=== PATIENT | female | born 1960 | race Two or more races ===

== ENCOUNTER 2017-09-26 13:00 | Emergency (ER) | payer OTHER ==
[2017-09-26 13:27] VITALS: BMI 31.7
--- NOTE | 2017-09-26 14:05 | PDOC ---
Attending Attestation - Resident Resident Name: GabbyAdrianna - ED Attending Attestation I have performed the following: I have examined & evaluated the patient, The case was reviewed & discussed with the resident, I agree w/resident's findings & plan, Exceptions are as noted <Dary Barnes - Last Filed: 09/26/17 14:05> - HPI HPI: 09/26/17 15:39 The patient is a 57 year old female with a significant PMH of HTN, fibromyalgia , spinal stenosis, previous TIA (2-3 years ago) and depression who presents to the emergency department after being sent by Dr. Lamar with a persistent cough beginning approximately last month with occasional hemoptysis. The patient reports noting specks of blood this morning and last week, and reports 2 previous episodes of hemoptysis last year. Allergies: Sulfonamide antibiotics. Past surgical history: Cholecystectomy, Tubal ligation, Right ear surgery. Social history: Current everyday smoker. No reported alcohol or drug use. PCP: Dr. Lamar <Davis Baca - Last Filed: 09/26/17 15:39>
--- NOTE | 2017-09-26 16:01 | PDOC ---
History of Present Illness - General Chief Complaint: Hemoptysis Stated Complaint: PCP SENT FOR CHEST CT FOR HEMOPTYSIS Time Seen by Provider: 09/26/17 14:02 History Source: Patient Exam Limitations: No Limitations - History of Present Illness Initial Comments: This is a 57 YOF with current right otitis media (on abx x5 days), HTN (takes amlodipine), spinal stenosis, fibromyalgia, and TIA 2-3 years ago who presents with cough for the past month with hemoptysis this morning. She describes the hemoptysis as specks of blood, and the last time she had this was a week ago. She had prior episodes of this last year. She [email or web address] had a previous chest CT showing pulmonary nodules at [facility] and was supposed to have these followed up but has not had a scan since 10/2015. On speaking with Pt's PCP Dr. Lamar, she just received the patient's chart from [facility] which has 92 pages and many imaging studies for multiple complaints (MRI, echocardiogram, CT) including a chest CT showing multiple nodules in 10/2015. Dr. Lamar and Dr. Pichardo (Pulmonology) both agree the patient needs a chest CT but there has been a time delay in her getting an outpatient study. Past History - Past Medical History Allergies/Adverse Reactions: Allergies Allergy/AdvReac Type Severity Reaction Status Date / Time Sulfa (Sulfonamide Allergy Intermediate Hives Verified 09/26/17 13:22 Antibiotics) Home Medications: Ambulatory Orders Amoxicillin/Potassium Clav [Augmentin 875-125 Tablet] 1 each PO BID #20 tablet 09/26/17 COPD: No HTN: Yes Other medical history: FIBROMYALGIA,SPINAL STENOSIS - Surgical History Cholecystectomy: Yes - Suicide/Smoking/Psychosocial Hx Smoking History: Current every day smoker Have you smoked in the past 12 months: Yes Number of Cigarettes Smoked Daily: 10 Information on smoking cessation initiated: No Review of Systems - Review of Systems Able to Perform ROS?: Yes Is the patient limited Swazi proficient: No Constitutional: Yes: Chills. No: Fever, Night Sweats, Unintentional Wgt. Loss, Unexplained wgt Loss HEENTM: No: Nose Congestion, Throat Pain Respiratory: Yes: Cough, Shortness of Breath (chronic), Hemoptysis. No: Orthopnea Cardiac (ROS): Yes: Palpitations, Chest Tightness (for two months) ABD/GI: No: Constipated, Diarrhea, Nausea, Vomiting : No: Burning, Dysuria Musculoskeletal: No: Back Pain, Neck Pain Integumentary: No: Bruising, Rash Neurological: Yes: Headache, Dizziness. No: Numbness, Tingling, Weakness Endocrine: No: Unexplained Weight Gain, Unexplained Weight Loss *Physical Exam - Vital Signs Last Vital Signs Temp Pulse Resp BP Pulse Ox 98.2 F 66 19 142/72 96 09/26/17 13:22 09/26/17 13:22 09/26/17 13:22 09/26/17 13:22 09/26/17 13:22 ED Treatment Course - LABORATORY CBC & Chemistry Diagram: 09/26/17 16:08 09/26/17 16:08 Medical Decision Making - Medical Decision Making 57 YOF with previously diagnosed lung nodules p/w hemoptysis. No risk factors for TB and states had a negative TST at [facility] earlier in 2017. No cough on exam, does not appear pale, mild right mastoid tenderness to percussion, perforated TM on the right. Spoke with Dr. Lamar who states patient needs CT chest to f/o lung masses found 10/2015. DDX IBNLT malignancy (i.e. lung vs. laryngeal, etc), bronchitis/PNA, CHF exacerbation, UGIB, etc. Ordered is CBCD, CMP, coags, BNP, CT chest, CT temporal bones. No significant abnormalities on laboratory results. CT Chest with numerous few-mm nodules, centrilobular emphysema, anterior superior mediastinum increased tissue. CT temporal bones suggestive of mastoid hypoaeration which could represent inflammation/infection, posterior nasopharynx increased tissue. Patient is given one Augmentin here in the ED and E-Rx sent to her pharmacy. She is appropriate for DC home with close OP follow up. Return precautions are discussed. *DC/Admit/Observation/Transfer Diagnosis at time of Disposition: Hemoptysis, Pulmonary nodule Mastoiditis Qualifiers: Laterality: right Qualified Code(s): H70.91 - Unspecified mastoiditis, right ear Otitis Qualifiers: Laterality: right Qualified Code(s): H66.91 - Otitis media, unspecified, right ear - Discharge Dispostion Disposition: HOME Condition at time of disposition: Stable Admit: No - Prescriptions Prescriptions: Amoxicillin/Potassium Clav [Augmentin 875-125 Tablet] 1 each PO BID #20 tablet - Referrals Referrals: Ary Lamar MD [Primary Care Provider] - - Patient Instructions Printed Discharge Instructions: DI for Mastoiditis-Adult Additional Instructions: You were seen in the ER for coughing specks of blood, and right ear pain. We did lab work and did not find any serious abnormal findings. We also did a chest CT and found many tiny nodules. You should follow up with your fluoroscope operator about this. We also did a head CT to look at the mastoid bone behind your right ear, and we found fluid within that bone which is likely infection. We are prescribing you a new antibiotic to take, called Augmentin. Please take the full course of this instead of your current antibiotics. Please also follow up with an ENT doctor regarding your mastoiditis and ear infection ( especially because your eardrum is ruptured). Return to the ER for any new or worsening symptoms like fever you can't control with OTC medications, severe pain you cannot control with medications at home, passing out, or other symptoms. - Post Discharge Activity
[2017-09-26 16:59] LABS: BASOPHIL 0.9 % (0-2.0); EOSINOPHIL 1.6 % (0-4.5); MEAN CELL VOLUME 88.2 fl (80-96); MEAN PLT VOLUME 9.2 fl (7.5-11.1); NEUTROPHILS 43.9 % (42.8-82.8); PLATELET COUNT 195 K/MM3 (134-434); RDW 13.7 % (11.6-15.6); WHITE BLOOD COUNT 6.4 K/mm3 (4.0-10.0)
[2017-09-26 17:25] LABS: INR 1.05 (0.82-1.09); PROTHROMBIN TIME (PATIENT) 11.9 SEC (9.98-11.88)
[2017-09-26 17:28] LABS: ACTIVATED PTT 30.1 SECONDS (26.9-34.4)
[2017-09-26 17:39] LABS: ALBUMIN 3.5 g/dl (3.4-5.0); ANION GAP 5 (8-16); CALCIUM 8.6 mg/dL (8.5-10.1); CO2 27 mmol/L (21-32); CREATININE 0.5 mg/dL (0.55-1.02); GLUCOSE,RANDOM 86 mg/dL (74-106); MAGNESIUM 2.3 mg/dL (1.8-2.4); PHOSPHOROUS 3.4 mg/dL (2.5-4.9); SGOT/AST 13 U/L (15-37)
[2017-09-26 17:51] LABS: ALK PHOS 76 U/L (45-117); BILIRUBIN,TOTAL 0.3 mg/dL (0.2-1.0); SGPT/ALT 25 U/L (12-78); TOT PROT 6.8 g/dl (6.4-8.2)
[2017-09-26] MEDS ORDERED: AMOX TR/POT CLAV 875MG/125MG TABLETS (FP) PO ONE (19:09)
[2017-09-26] MEDS ORDERED: AMOX TR/POT CLAV 875MG/125MG TABLETS (FP) ONE (19:21)
[2017-09-26 19:42] VITALS: BP 143/81; PULSE 67; TEMP 98.6
== END 2017-09-26 19:42 | disposition home or self-care (01) ==
LOC: JER 13:00
DX: R04.2 Hemoptysis (principal); R91.8 Other nonspecific abnormal finding of lung field; H70.91 Unspecified mastoiditis, right ear; H66.91 Otitis media, unspecified, right ear; I10 Essential (primary) hypertension; M79.7 Fibromyalgia; M48.00 Spinal stenosis, site unspecified
CPT/HCPCS: 36415; 70480-TC; 71250-TC; 80053; 83735; 83880; 84100; 85025; 85610; 85730; 99282-25

== ENCOUNTER 2017-10-02 11:39 | Inpatient (IN) | payer OTHER ==
--- NOTE | 2017-10-02 12:50 | PDOC ---
History of Present Illness - General Chief Complaint: Lightheaded Stated Complaint: DIZZINESS, ADMIT (PCP SENT) Time Seen by Provider: 10/02/17 12:03 History Source: Patient Exam Limitations: No Limitations - History of Present Illness Initial Comments: This is a 57 YOF with h/o recent/current right otitis media and right mastoiditis diagnosed here in the ED about a week and a half ago (took Augmentin and one other antibiotic), recent admission to [facility] for right- sided weakness/dizziness/dysphagia/lethargy for which she was clinically diagnosed with CVA and had tPA but MRI and brain angio subsequently showed no obvious lesion (discharged yesterday), HTN, HLD, thoracic spinal stenosis, fibromyalgia, major depression, COPD, and long-term cigarette smoking ("I quit today"). She presents with continued right ear pain and odorous blood-tinged drainage, right lateral neck and mastoid pain, right arm and right leg heaviness /numbness/tinglingfocal weakness, tiredness, and imbalance. Dr. Lamar called ahead and expressed concern over these symptoms as well as lung nodules, and recommends that the patient be admitted for IV antibiotics and ENT consult. She currently denies fever, chills, vomiting, diarrhea, chest pain, SOB, or other new symptoms. Past History - Past Medical History Allergies/Adverse Reactions: Allergies Allergy/AdvReac Type Severity Reaction Status Date / Time Sulfa (Sulfonamide Allergy Intermediate Hives Verified 10/02/17 11:43 Antibiotics) COPD: No HTN: Yes - Surgical History Cholecystectomy: Yes - Immunization History Immunization Up to Date: Yes - Suicide/Smoking/Psychosocial Hx Smoking History: Current every day smoker Have you smoked in the past 12 months: Yes Number of Cigarettes Smoked Daily: 20 Information on smoking cessation initiated: No Hx Alcohol Use: No Drug/Substance Use Hx: No Substance Use Type: None Review of Systems - Review of Systems Able to Perform ROS?: Yes Constitutional: Yes: Malaise. No: Chills, Fever, Unexplained wgt Loss HEENTM: Yes: Ear Pain (right), Hearing Loss (right), Other (right mastoid pain, right lateral superior neck pain (patient points)). No: Blurred Vision, Recent change in vision, Nose Congestion, Throat Pain Respiratory: No: Cough, Shortness of Breath Cardiac (ROS): No: Chest Pain, Palpitations ABD/GI: Yes: Nausea. No: Constipated, Diarrhea, Vomiting : No: Burning, Dysuria Musculoskeletal: Yes: Neck Pain (right lateral neck). No: Back Pain Integumentary: No: Bruising, Rash Neurological: Yes: Headache (right sided), Numbness (right arm and leg), Tingling (right arm and leg), Weakness (right arm and leg), Dizziness ( "imbalance") Psychiatric: Yes: Sleep Pattern Change (frequently very tired) Endocrine: No: Unexplained Weight Gain, Unexplained Weight Loss *Physical Exam - Vital Signs Last Vital Signs Temp Pulse Resp BP Pulse Ox 98.5 F 65 16 163/75 99 10/02/17 11:44 10/02/17 11:44 10/02/17 11:44 10/02/17 11:44 10/02/17 11:44 - Physical Exam General Appearance: Yes: Nourished, Appropriately Dressed, Mild Distress, Other HEENT: positive: EOMI, SHELLEY, Normal Voice, Sinus Tenderness (right ethmoid and maxillary sinus ttp), Hearing Grossly Normal, TM Bulging (right TM), TM Erythema (right TM), Other (right EAC erythema, right mastoid tenderness to percussion and to light palpation, hazy blood-tinged fluid visualized behind the right TM, no drainage seen within the right EAC, significant tenderness to otoscopic exam on the right). negative: Scleral Icterus (R), Scleral Icterus (L ), Nasal Congestion, Rhinorrhea Neck: positive: Trachea midline, Supple, Tender lateral (right superior-lateral ttp just inferior to right mastoid). negative: Rigid, Tender midline Respiratory/Chest: positive: Lungs Clear, Normal Breath Sounds. negative: Chest Tender, Respiratory Distress, Accessory Muscle Use, Crackles, Rhonchi, Stridor, Wheezing Cardiovascular: positive: Regular Rhythm, Regular Rate. negative: Edema, Murmur Gastrointestinal/Abdominal: positive: Normal Bowel Sounds, Soft. negative: Tender, Organomegaly, Pulsatile Mass, Guarding Lymphatic: positive: Adenopathy (right submandibular mild tender lymphadenopathy ) Musculoskeletal: positive: Normal Inspection. negative: Decreased Range of Motion, Vertebral Tenderness Extremity: positive: Normal Capillary Refill, Normal Inspection, Normal Range of Motion. negative: Tender, Cyanosis Integumentary: positive: Normal Color, Dry, Warm. negative: Erythema, Diaphoresis, Rash, Bruising Neurologic: positive: optical scientist II-XII NML intact, Fully Oriented, Alert, Normal Mood/ Affect, Normal Response, Motor Strength 5/5, Finger to Nose (normal though right side limited by focal weakness), Depressed Affect. negative: EOM Palsy, Facial Droop, Confused, Disoriented ED Treatment Course - LABORATORY CBC & Chemistry Diagram: 10/02/17 13:30 10/02/17 13:30 Medical Decision Making - Medical Decision Making 57 YOF with current right OM/mastoiditis failing outpatient abx, also recent admission for CVA sxs now s/p tPA. MRI and brain angio done at [facility] per patient's report not showing any obvious lesion. Here in the ED patient is mildly hypertensive but otherwise VS wnl. She has right EAC tenderness and erythema, TM bulging, hazy blood-tinged fluid behind TM, mastoid ttp. Ordered is CT head/temporal bones, EKG, CXR, CBCD, CMP, Mg, Phos, cardiac panel , coags, T&S. Patient is given IV Tylenol and IVF. 10/02/17 16:16 Slight elevation in ESR (34) and small hematuria (1+) but otherwise labs wnl. Awaiting blood culture results; Vanc/Ceftriaxone given. CXR done and awaiting official read. Calls placed to Dr. England (ENT) and awaiting consult with him. 10/02/17 17:21 Awaiting call back from ENT fuel verification technician. CT studies and CXR done Spoke with Dr. Kumar for admission. She agrees with plan for admission. Consult placed for ENT Dr. England. *DC/Admit/Observation/Transfer Diagnosis at time of Disposition: Pulmonary nodule Mastoiditis Qualifiers: Laterality: right Qualified Code(s): H70.91 - Unspecified mastoiditis, right ear Otitis Qualifiers: Laterality: right Qualified Code(s): H66.91 - Otitis media, unspecified, right ear - Discharge Dispostion Condition at time of disposition: Guarded Admit: Yes - Referrals - Patient Instructions - Post Discharge Activity
[2017-10-02] MEDS ORDERED: ACETAMINOPHEN 1000 MG/100 ML VIAL (NON FORMULARY) IVPB ONE (13:03)
[2017-10-02] MEDS ORDERED: VANCOMYCIN 1 GRAM (PRE-DOCKED) 1,000 MG/250 ML BAG IVPB ONE ×2 (13:39→14:05)
[2017-10-02] MEDS ORDERED: CEFTRIAXONE 2 GM in DEXTROSE 5%-WATER - 100 ML IVPB ONE (13:39)
[2017-10-02 13:59] LABS: BASOPHIL 0.8 % (0-2.0); EOSINOPHIL 1.3 % (0-4.5); MCH 29.9 pg (25.7-33.7); NEUTROPHILS 51.5 % (42.8-82.8); PLATELET COUNT 194 K/MM3 (134-434)
[2017-10-02 14:02] LABS: URINE APPEARANCE CLEAR; URINE BILIRUBIN NEGATIVE (NEGATIVE); URINE BLOOD 1+ (NEGATIVE); URINE COLOR YELLOW; URINE GLUCOSE (UA) NEGATIVE (NEGATIVE); URINE KETONE NEGATIVE (NEGATIVE); URINE LEUK ESTERASE NEGATIVE (NEGATIVE); URINE NITRITE NEGATIVE (NEGATIVE); URINE PROTEIN NEGATIVE (NEGATIVE); URINE UROBILINOGEN NEGATIVE mg/dL (0.2-1.0)
[2017-10-02] MEDS ORDERED: ACETAMINOPHEN INJECTION 100 ML IVPB ONE (14:04)
[2017-10-02] MEDS ORDERED: CEFTRIAXONE 2 GM/100 ML BAG IVPB ONE (14:05)
[2017-10-02 14:32] LABS: INR 1.06 (0.82-1.09)
[2017-10-02 14:37] LABS: CPK 64 IU/L (26-192)
[2017-10-02 14:38] LABS: TROPONIN I < 0.02 ng/ml (0.00-0.05)
[2017-10-02 14:43] LABS: URINE BACTERIA RARE /hpf (NONE SEEN); URINE MUCUS RARE; URINE RBC 4 /hpf (0-3); URINE WBC <1 /hpf (3-5)
[2017-10-02 14:48] LABS: ALBUMIN 3.7 g/dl (3.4-5.0); ALK PHOS 81 U/L (45-117); ANION GAP 8 (8-16); BILIRUBIN,TOTAL 0.3 mg/dL (0.2-1.0); CO2 26 mmol/L (21-32); CREATININE 0.6 mg/dL (0.55-1.02); GLUCOSE,RANDOM 102 mg/dL (74-106); PHOSPHOROUS 2.9 mg/dL (2.5-4.9); SGOT/AST 19 U/L (15-37); SGPT/ALT 29 U/L (12-78); TOT PROT 6.9 g/dl (6.4-8.2)
--- NOTE | 2017-10-02 14:59 | PDOC ---
Attending Attestation - Resident Resident Name: Adrianna Pierre - ED Attending Attestation I have performed the following: I have examined & evaluated the patient, The case was reviewed & discussed with the resident, I agree w/resident's findings & plan, Exceptions are as noted - HPI HPI: 10/02/17 14:59 57 F with h/o HTN, HLD, recently diagnosed R mastoiditis, who presents to ER with worsening R ear pain. Pt was seen here 1 week ago and had CT temporal bone consistent with mastoiditis. Pt was sent home with course of augmentin. 3 days ago, pt began to have weakness in her R arm and leg. She went to another ER, where she was evaluated for stroke. MRI was obtained and found to be negative for acute stroke. Today, pt presents to ER with worsening ear pain and drainage despite compliance with abx. Denies F/C. Endorses mild headache, no N/V. - Physicial Exam PE: 10/02/17 15:13 "GENERAL: Awake, alert, and fully oriented, in no acute distress HEAD: No signs of trauma EYES: PERRLA, EOMI, sclera anicteric, conjunctiva clear ENT: R auditory canal with purulent drainage, TM bulging, pain with manipulation of pinna, +TTP over R mastoid NECK: Nontender, no stepoffs, Normal ROM, supple, no lymphadenopathy, JVD, or masses LUNGS: Breath sounds equal, clear to auscultation bilaterally. No wheezes, and no crackles HEART: Regular rate and rhythm, normal S1 and S2, no murmurs, rubs or gallops ABDOMEN: Soft, nontender, normoactive bowel sounds. No guarding, no rebound. No masses EXTREMITIES: Normal range of motion, no edema. No clubbing or cyanosis. No cords, erythema, or tenderness NEUROLOGICAL: Cranial nerves II through XII intact. 5/5 strength and sensation in all extremities, Normal speech, normal gait SKIN: Warm, Dry, normal turgor, no rashes or lesions noted. " - Medical Decision Making 10/02/17 15:14 57 F with worsening R ear pain and headache. Likely incompletely treated mastoiditis. Will repeat CT of temporal bones to evaluate extent of infection. Given worsening headache, will also obtain CT head with IV contrast to r/o intracranial abscess. - Labs, cultures - CT temporal bones, CT Head with contrast - Vancomycin, ceftriaxone IV - ENT consult - Admit
[2017-10-02 19:33] LABS: URINE LEUK ESTERASE Negative (NEGATIVE)
--- NOTE | 2017-10-02 21:07 | HP ---
Admitting History and Physical - Primary Care Physician PCP: Sergio Kumar - Admission History of Present Illness: This is a 57 YOF with h/o recent/current right otitis media and right mastoiditis diagnosed here in the ED about a week and a half ago (took Augmentin and one other antibiotic), recent admission to [facility] for right- sided weakness/dizziness/dysphagia/lethargy for which she was clinically diagnosed with CVA and had tPA but MRI and brain angio subsequently showed no obvious lesion (discharged yesterday), HTN, HLD, thoracic spinal stenosis, fibromyalgia, major depression, COPD, and long-term cigarette smoking ("I quit today"). She presents with continued right ear pain and odorous blood-tinged drainage, right lateral neck and mastoid pain, right arm and right leg heaviness /numbness/tinglingfocal weakness, tiredness, and imbalance. Dr. Lamar called ahead and expressed concern over these symptoms as well as lung nodules, and recommends that the patient be admitted for IV antibiotics and ENT consult. 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 Cardiovascular: Yes: HTN, Hyperlipdemia - Smoking History Smoking history: Current every day smoker Have you smoked in the past 12 months: Yes Aproximately how many cigarettes per day: 20 - Alcohol/Substance Use Hx Alcohol Use: No Home Medications - Allergies Allergies/Adverse Reactions: Allergies Allergy/AdvReac Type Severity Reaction Status Date / Time Sulfa (Sulfonamide Allergy Intermediate Hives Verified 10/02/17 11:43 Antibiotics) - Home Medications Home Medications: Ambulatory Orders Amlodipine Besylate [Norvasc -] 5 mg PO DAILY 10/03/17 Amoxicillin/Potassium Clav [Augmentin 875-125 Tablet] 1 each PO BID #14 tablet 10/03/17 Physical Examination Vital Signs: Vital Signs Temperature 98.5 F 10/02/17 11:44 Pulse Rate 65 10/02/17 11:44 Respiratory Rate 16 10/02/17 11:44 Blood Pressure 163/75 10/02/17 11:44 O2 Sat by Pulse Oximetry (%) 99 10/02/17 11:44 Constitutional: Yes: No Distress HENT: Yes: Other (tendernesss over R mastoid process) Cardiovascular: Yes: Regular Rate and Rhythm Respiratory: Yes: CTA Bilaterally Gastrointestinal: Yes: Normal Bowel Sounds Extremities: Yes: WNL Edema: No Peripheral Pulses WNL: Yes Neurological: Yes: Alert, Oriented Labs: CBC, BMP 10/02/17 13:30 10/02/17 13:30 Imaging - Results Cat Scan: Report Reviewed Problem List - Problems (1) Mastoiditis Assessment/Plan: iv abx Code(s): H70.90 - UNSPECIFIED MASTOIDITIS, UNSPECIFIED EAR Qualifiers: Laterality: right Qualified Code(s): H70.91 - Unspecified mastoiditis, right ear (2) Otitis Assessment/Plan: ent/id consult Code(s): H66.90 - OTITIS MEDIA, UNSPECIFIED, UNSPECIFIED EAR Qualifiers: Laterality: right Qualified Code(s): H66.91 - Otitis media, unspecified, right ear Assessment/Plan Laboratory Tests 10/02/17 10/02/17 10/02/17 13:30 13:30 13:30 WBC 7.0 RBC 4.41 Hgb 13.2 Hct 38.8 MCV 88.0 MCH 29.9 MCHC 34.0 RDW 14.0 Plt Count 194 MPV 9.0 Neutrophils % 51.5 Lymphocytes % 39.6 Monocytes % 6.8 Eosinophils % 1.3 Basophils % 0.8 ESR PT with INR INR Sodium Potassium Chloride Carbon Dioxide Anion Gap BUN Creatinine Creat Clearance w eGFR Random Glucose Lactic Acid Calcium Phosphorus Magnesium Total Bilirubin AST ALT Alkaline Phosphatase Creatine Kinase 64 Troponin I < 0.02 C-Reactive Protein B-Natriuretic Peptide 47.88 Total Protein Albumin Urine Color Yellow Urine Appearance Clear Urine pH 5.0 Ur Specific [place] 1.013 Urine Protein Negative Urine Glucose (UA) Negative Urine Ketones Negative Urine Blood 1+ H Urine Nitrite Negative Urine Bilirubin Negative Urine Urobilinogen Negative Ur Leukocyte Esterase Negative Urine WBC (Auto) <1 Urine RBC (Auto) 4 Ur Epithelial Cells Rare Urine Bacteria Rare Urine Mucus Rare Blood Type Antibody Screen 10/02/17 10/02/17 10/02/17 13:30 13:30 13:30 WBC RBC Hgb Hct MCV MCH MCHC RDW Plt Count MPV Neutrophils % Lymphocytes % Monocytes % Eosinophils % Basophils % ESR PT with INR 12.00 H INR 1.06 Sodium 142 Potassium 4.1 Chloride 108 H Carbon Dioxide 26 Anion Gap 8 BUN 12 Creatinine 0.6 Creat Clearance w eGFR > 60 Random Glucose 102 Lactic Acid Calcium 9.0 Phosphorus 2.9 Magnesium 2.0 Total Bilirubin 0.3 AST 19 D ALT 29 Alkaline Phosphatase 81 Creatine Kinase Troponin I C-Reactive Protein B-Natriuretic Peptide Total Protein 6.9 Albumin 3.7 Urine Color Urine Appearance Urine pH Ur Specific [place] Urine Protein Urine Glucose (UA) Urine Ketones Urine Blood Urine Nitrite Urine Bilirubin Urine Urobilinogen Ur Leukocyte Esterase Urine WBC (Auto) Urine RBC (Auto) Ur Epithelial Cells Urine Bacteria Urine Mucus Blood Type A POSITIVE Antibody Screen Negative 10/02/17 10/02/17 10/02/17 13:30 13:30 13:30 WBC RBC Hgb Hct MCV MCH MCHC RDW Plt Count MPV Neutrophils % Lymphocytes % Monocytes % Eosinophils % Basophils % ESR 34 H PT with INR INR Sodium Potassium Chloride Carbon Dioxide Anion Gap BUN Creatinine Creat Clearance w eGFR Random Glucose Lactic Acid 1.2 Calcium Phosphorus Magnesium Total Bilirubin AST ALT Alkaline Phosphatase Creatine Kinase Troponin I C-Reactive Protein < 0.3 B-Natriuretic Peptide Total Protein Albumin Urine Color Urine Appearance Urine pH Ur Specific [place] Urine Protein Urine Glucose (UA) Urine Ketones Urine Blood Urine Nitrite Urine Bilirubin Urine Urobilinogen Ur Leukocyte Esterase Urine WBC (Auto) Urine RBC (Auto) Ur Epithelial Cells Urine Bacteria Urine Mucus Blood Type Antibody Screen Active Medications Generic Name Dose Route Start Last Admin Trade Name Freq PRN Reason Stop Dose Admin Acetaminophen 650 mg 10/02/17 21:04 Tylenol - PO Q6H PRN FEVER OR PAIN Ceftriaxone Sodium 1 gm/ 100 mls @ 200 mls/hr 10/03/17 10:00 Dextrose IVPB 10/03/17 11:59 DAILY ELMO Active Medications Generic Name Dose Route Start Last Admin Trade Name Freq PRN Reason Stop Dose Admin Acetaminophen 650 mg 10/02/17 21:04 10/03/17 10:34 Tylenol - PO 650 mg Q6H PRN Administration FEVER OR PAIN CEFTRIAXONE 1 G/50 ML PREMIX 50 mls @ 100 mls/hr 10/03/17 10:00 10/03/17 10: 34 Ceftriaxone 1 Gm-D5w Bag IVPB 100 mls/hr DAILY ELMO Administration Vancomycin HCl 1,000 mg/ 250 mls @ 166.667 mls/hr 10/03/17 14:00 10/03/17 14: 59 Dextrose IVPB 166.667 mls/hr Q12H ELMO Administration Protocol
[2017-10-02] MEDS: ACETAMINOPHEN 325 MG TABLET (FP) PO PRN (22:26)
[2017-10-02 23:47] VITALS: BMI 31.9
[2017-10-03 07:54] LABS: BASOPHIL 0.7 % (0-2.0); EOSINOPHIL 2.2 % (0-4.5); MCHC 34.1 g/dl (32.0-36.0); MEAN CELL VOLUME 87.9 fl (80-96); MEAN PLT VOLUME 9.1 fl (7.5-11.1); NEUTROPHILS 44.2 % (42.8-82.8); PLATELET COUNT 168 K/MM3 (134-434); RDW 13.5 % (11.6-15.6); WHITE BLOOD COUNT 5.8 K/mm3 (4.0-10.0)
[2017-10-03 08:57] LABS: ALBUMIN 3.4 g/dl (3.4-5.0); ALK PHOS 76 U/L (45-117); ANION GAP 7 (8-16); BILIRUBIN,TOTAL 0.5 mg/dL (0.2-1.0); CALCIUM 8.7 mg/dL (8.5-10.1); CO2 26 mmol/L (21-32); CREATININE 0.4 mg/dL (0.55-1.02); GLUCOSE,RANDOM 84 mg/dL (74-106); SGOT/AST 16 U/L (15-37); SGPT/ALT 30 U/L (12-78); TOT PROT 6.3 g/dl (6.4-8.2)
[2017-10-03] MEDS: ACETAMINOPHEN 325 MG TABLET (FP) PO PRN ×2 (10:34→19:03)
[2017-10-03] MEDS: CEFTRIAXONE 1 G/50 ML PREMIX 50 ML IVPB SCH (10:34)
--- NOTE | 2017-10-03 10:37 | EKG ---
Test Reason : Blood Pressure : / mmHG Vent. Rate : 051 BPM Atrial Rate : 051 BPM P-R Int : 150 ms QRS Dur : 090 ms QT Int : 462 ms P-R-T Axes : 028 050 042 degrees QTc Int : 425 ms SINUS BRADYCARDIA POOR R WAVE PROGRESSION OTHERWISE NORMAL ECG NO PREVIOUS ECGS AVAILABLE Confirmed by MD ALESIA, SHANNON ([id number]) on 10/03/2017 10:36:30 AM Referred By: Confirmed By:SHANNON DUMAS MD
--- NOTE | 2017-10-03 13:19 | CON.ID ---
Consult - History of Present Illness History of Present Illness: 57 y.o. female with history of COPD (smoker), HTN, HLD, fibromyalgia, depression , thoracic spine stenosis, TIA, and lung nodules presenting with c/o persistent Rt ear pain and drainage. She was seen one wk ago in the ER and found to have Rt otomastoiditis and was discharged on augmentin. A few days ago she went to another hospital for Rt sided weakness and dizziness and worked up for CVA but MRI findings were normal. She presents now with persistent Rt ear pain and drainage with pain extending to pinna and posteriorly. She is afebrile, without chills. States she is feeling less weak on the right side. No current cough, abd pain/n/v/d, dysuria, shortness of breath, or chest pain. 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 Cardio/Vascular: Yes: HTN, Hyperlipdemia Psych: Yes: Depression Musculoskeletal: Yes: Other (fibromyalgia) - Alcohol/Substance Use Hx Alcohol Use: No - Smoking History Smoking history: Current every day smoker Have you smoked in the past 12 months: Yes Aproximately how many cigarettes per day: 20 Home Medications - Allergies Allergies/Adverse Reactions: Allergies Allergy/AdvReac Type Severity Reaction Status Date / Time Sulfa (Sulfonamide Allergy Intermediate Hives Verified 10/02/17 11:43 Antibiotics) - Home Medications Home Medications: Ambulatory Orders Amlodipine Besylate [Norvasc -] 5 mg PO DAILY 10/03/17 Review of Systems - Review of Systems Constitutional: reports: No Symptoms Eyes: reports: No Symptoms HENT: reports: Ear Discharge, Ear Pain, Hearing Loss Neck: reports: No Symptoms Cardiovascular: reports: No Symptoms Respiratory: reports: No Symptoms Gastrointestinal: reports: No Symptoms Genitourinary: reports: No Symptoms Breasts: reports: No Symptoms Reported Musculoskeletal: reports: No Symptoms Integumentary: reports: No Symptoms Neurological: reports: Weakness (Rt side of body- improving) Endocrine: reports: No Symptoms Hematology/Lymphatic: reports: No Symptoms Psychiatric: reports: No Symptoms Physical Exam Vital Signs: Vital Signs Temperature 98.0 F 10/03/17 09:00 Pulse Rate 61 10/03/17 09:00 Respiratory Rate 18 10/03/17 09:00 Blood Pressure 120/68 10/03/17 09:00 O2 Sat by Pulse Oximetry (%) 98 10/02/17 21:00 Constitutional: Yes: No Distress, Calm Eyes: Yes: WNL HENT: Yes: Other (minimal purulent drainage, + tenderness to palpation of pinna and mastoid) Neck: Yes: Supple Cardiovascular: Yes: Regular Rate and Rhythm Respiratory: Yes: CTA Bilaterally Gastrointestinal: Yes: Normal Bowel Sounds, Soft Renal/: Yes: WNL Musculoskeletal: Yes: WNL Extremities: Yes: WNL Edema: No Integumentary: Yes: WNL Psychiatric: Yes: Alert Labs: CBC, BMP 10/03/17 07:35 10/03/17 08:00 Imaging - Results Cat Scan: Report Reviewed Problem List - Problems (1) Mastoiditis Code(s): H70.90 - UNSPECIFIED MASTOIDITIS, UNSPECIFIED EAR Qualifiers: Laterality: right Qualified Code(s): H70.91 - Unspecified mastoiditis, right ear (2) Otitis Code(s): H66.90 - OTITIS MEDIA, UNSPECIFIED, UNSPECIFIED EAR Qualifiers: Laterality: right Qualified Code(s): H66.91 - Otitis media, unspecified, right ear Assessment/Plan 57 y.o. female with multiple medical problems presenting with persistent Rt ear pain and drainage despite augmentin po. Recently evaluated for possible CVA but MRI findings not supportive of diagnosis. Rt otomastoiditis, Tympanic membrane rupture - cont. Ceftriaxone, Vancomycin empirically - ENT evaluation - collect culture of drainage will f/u
[2017-10-03] MEDS: VANCOMYCIN 1,000 MG in DEXTROSE 5%-WATER - 250 ML IVPB SCH (14:59)
--- NOTE | 2017-10-03 15:42 | CON.ENT ---
Consult Consult Specialty:: ENT Reason for Consultation:: Ear infection - History of Present Illness Chief Complaint: Right ear pain and otorrhea History of Present Illness: Pt with h/o right ear surgery 35 years ago. She has 3-4 ear infections per year and was having right ear infection with otorrhea and was placed on augmentin. She got fdc thru the course and developed sx that caused her to be admitted to [facility]. She was r/o of CVA and discharged, but during her 3 day sty she was not on abx. Her right ear became worse. She has a long standing right hearing loss going back 35 years. She has PMH of HTN, HLD, thoracic spinal stenosis, fibromyalgia, major depression, COPD, and long-term cigarette smoking. 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 Cardio/Vascular: Yes: HTN, Hyperlipdemia Psych: Yes: Depression Musculoskeletal: Yes: Other (fibromyalgia) - Alcohol/Substance Use Hx Alcohol Use: No - Smoking History Smoking history: Current every day smoker Have you smoked in the past 12 months: Yes Aproximately how many cigarettes per day: 20 Home Medications - Allergies Allergies/Adverse Reactions: Allergies Allergy/AdvReac Type Severity Reaction Status Date / Time Sulfa (Sulfonamide Allergy Intermediate Hives Verified 10/02/17 11:43 Antibiotics) - Home Medications Home Medications: Ambulatory Orders Amlodipine Besylate [Norvasc -] 5 mg PO DAILY 10/03/17 Physical Exam-ENT Vital Signs: Vital Signs Temperature 97.7 F 10/03/17 14:20 Pulse Rate 56 L 10/03/17 14:20 Respiratory Rate 20 10/03/17 14:20 Blood Pressure 148/65 10/03/17 14:20 O2 Sat by Pulse Oximetry (%) 98 10/02/17 21:00 Constitutional: Yes: Well Nourished, No Distress Head: Yes: WNL, Atraumatic Face: Yes: WNL, Symmetrical Eyes: Yes: WNL, Conjunctiva Clear Nose: Yes: WNL Nasal Passage: Yes: WNL Oral/Pharynx: Yes: WNL Outer Ear: Yes: Other (Left normal, right no postauricualr erythema edema, but mild tenderness.) Ear Canal: Yes: Other (left normal, mild right EAC discharge) Tympanic Membrane: Yes: Other (left normal, right purulent d/c medial canal) Neck: Yes: WNL Imaging - Results Cat Scan: Image Reviewed (opacified mastoid and middle ear right, no bone destruction grossly.) Problem List - Problems (1) Chronic otitis media of right ear with perforated tympanic membrane Assessment/Plan: No water in the ear, Finish course of augmentin 875 bid for 7-10 days then course of ciprofloxacin 750 bid for 10 days and f/u in office for audiogram. Code(s): H66.91 - OTITIS MEDIA, UNSPECIFIED, RIGHT EAR; H72.91 - UNSPECIFIED PERFORATION OF TYMPANIC MEMBRANE, RIGHT EAR
--- NOTE | 2017-10-03 16:37 | CON.NEURO ---
Consult Consult Specialty:: Neurology Referred by:: Stacy Reason for Consultation:: Recent "stroke" - History of Present Illness Chief Complaint: Right sided weakness History of Present Illness: Patient was admitted to [facility] with confusion, right sided weakness on Friday. She was given TPA and admitted to the stroke unit, and MRI was negative. Upon further evaluation the Stroke Attending, Dr. Raya concluded that this was a "stress" reaction rather than a stroke and she was discharged. She was felt to have some weakness due to her fibromyalgia and chronic pain for which she is on disability. She also tells me that she has become weak like this with her headaches in the past. She gets headaches several times per week and these are associated with phonophobia and nausea and sometimes sensory and motor complaints. MRI recently negative and there was suspicion of AVM but this was ruled out with angiography. 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 Diagnostic cerebral angiogram is suggested as a possible diagnostic tests to confirm the presence of true arteriovenous shunting. No acute infarct. There is mild chronic white matter ischemia. CTA head Status: Final result Patient name: CHANDA WEINER , [id number]. DOS: 09/29/2017 8:15 PM, DOD: 09/30/2017 8:40 AM. EXAMINATION: CTA head, CTA neck IMPRESSION: ~ CTA brain: Question small arteriovenous malformation versus developmental venous anomaly left-sided anterior temporal lobe. Possible tiny right-sided supraclinoid aneurysm. CTA neck: Normal vessels As per Dr. Raya: "I personally examined the patient and have reviewed the stroke resident's discharge note. I agree with the findings except as indicated below and include my independent findings and conclusions. MRI showed no infarct and AVM was ruled out with cerebral angiography. She had transient inability to speak and right hemiparesis but we now suspect that the trouble was due to stress, not due to stroke or TIA. Discharge plan as outlined in the discharge note. 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 Cardio/Vascular: Yes: HTN, Hyperlipdemia Psych: Yes: Depression Musculoskeletal: Yes: Other (fibromyalgia) - Alcohol/Substance Use Hx Alcohol Use: No - Smoking History Smoking history: Current every day smoker Have you smoked in the past 12 months: Yes Aproximately how many cigarettes per day: 20 Home Medications - Allergies Allergies/Adverse Reactions: Allergies Allergy/AdvReac Type Severity Reaction Status Date / Time Sulfa (Sulfonamide Allergy Intermediate Hives Verified 10/02/17 11:43 Antibiotics) - Home Medications Home Medications: Ambulatory Orders Amlodipine Besylate [Norvasc -] 5 mg PO DAILY 10/03/17 Review of Systems - Review of Systems Musculoskeletal: reports: Back Pain, Extremity Pain, Muscle Pain (fibromyalgia) Neurological: reports: Headache, Weakness Physical Exam-Neuro Vital Signs: Vital Signs Temperature 97.7 F 10/03/17 14:20 Pulse Rate 56 L 10/03/17 14:20 Respiratory Rate 20 10/03/17 14:20 Blood Pressure 148/65 10/03/17 14:20 O2 Sat by Pulse Oximetry (%) 96 10/03/17 09:00 Labs: CBC, BMP 10/03/17 07:35 10/03/17 08:00 INR, PTT INR 1.06 (0.82-1.09) 10/02/17 13:30 - Neuro Exam Level Of Consciousness: Yes: Alert, Oriented to Person, Oriented to Place, Oriented to Time Eyes: Yes: SHELLEY Speech: WNL Cranial Nerves II-XII Intact: Yes DTR's: 2+ Left Bicep, 2+ Right Bicep, 2+ Left Tricep, 2+ Right Tricep, 2+ Left Brachioradialis, 2+ Right Brachioradialis, 2+ Left Achilles, 2+ Right Achilles Babinski: Absent Response to light touch: Abnormal (reduced sensation in the right arm only) Coordination: Normal: Finger to Nose, Heel to [place] Motor Strength: 5/5: Left Arm, Right Arm, Left Leg, Right Leg (some give way weakness with pain, no pronator drift) Imaging - Results Cat Scan: Report Reviewed, Image Reviewed (no stroke) Problem List - Problems (1) Fibromyalgia Code(s): M79.7 - FIBROMYALGIA Assessment/Plan No recent stroke or TIA. Records suggest that [facility] physicians came to the conclusion that her deficits were not related to cerebrovascular disease but rather to fibromyalgia and "stress". Her fibromyalgia and emotional state will require further work as outpatient but I see no further neurologic evaluation necessary in the hospital. Please call if further questions arise. Dr. Darby covering this weekend.
--- NOTE | 2017-10-03 18:15 | PN ---
Progress Note, Physician History of Present Illness: feeling better less pain - Current Medication List Current Medications: Active Medications Acetaminophen (Tylenol -) 650 mg PO Q6H PRN PRN Reason: FEVER OR PAIN Last Admin: 10/03/17 10:34 Dose: 650 mg CEFTRIAXONE 1 G/50 ML PREMIX (Ceftriaxone 1 Gm-D5w Bag) 50 mls @ 100 mls/hr IVPB DAILY ELMO Last Admin: 10/03/17 10:34 Dose: 100 mls/hr Vancomycin HCl 1,000 mg/ (Dextrose) 250 mls @ 166.667 mls/hr IVPB Q12H ELMO PRN Reason: Protocol Last Admin: 10/03/17 14:59 Dose: 166.667 mls/hr - Objective Vital Signs: Vital Signs Temperature 97.7 F 10/03/17 14:20 Pulse Rate 56 L 10/03/17 14:20 Respiratory Rate 20 10/03/17 14:20 Blood Pressure 148/65 10/03/17 14:20 O2 Sat by Pulse Oximetry (%) 96 10/03/17 09:00 Constitutional: Yes: No Distress HENT: Yes: Atraumatic, Other (no tenderness over mastoid) Neck: Yes: Supple Cardiovascular: Yes: Regular Rate and Rhythm Respiratory: Yes: CTA Bilaterally Gastrointestinal: Yes: Normal Bowel Sounds Extremities: Yes: WNL Neurological: Yes: Alert, Oriented Labs: CBC, BMP 10/03/17 07:35 10/03/17 08:00 INR, PTT INR 1.06 (0.82-1.09) 10/02/17 13:30 Problem List - Problems (1) Mastoiditis Assessment/Plan: iv abx Code(s): H70.90 - UNSPECIFIED MASTOIDITIS, UNSPECIFIED EAR Qualifiers: Laterality: right Qualified Code(s): H70.91 - Unspecified mastoiditis, right ear (2) Otitis Assessment/Plan: ent/id consult Code(s): H66.90 - OTITIS MEDIA, UNSPECIFIED, UNSPECIFIED EAR Qualifiers: Laterality: right Qualified Code(s): H66.91 - Otitis media, unspecified, right ear Assessment/Plan dc on po abx tomorrow follow up ent/pmd
[2017-10-04] MEDS ORDERED: PT OWN MED DRAWER 7, Y5N ONE (01:35)
[2017-10-04] MEDS: ACETAMINOPHEN 325 MG TABLET (FP) PO PRN ×2 (01:39→06:48)
[2017-10-04] MEDS: VANCOMYCIN 1,000 MG in DEXTROSE 5%-WATER - 250 ML IVPB SCH (01:39)
[2017-10-04 06:58] VITALS: TEMP 98
[2017-10-04] MEDS: CEFTRIAXONE 1 G/50 ML PREMIX 50 ML IVPB SCH (10:02)
[2017-10-04 11:27] VITALS: BP 150/56; PULSE 60
--- NOTE | 2017-10-05 15:24 | DS ---
Physical Examination Vital Signs: Vital Signs Temperature 98.0 F 10/04/17 06:00 Pulse Rate 60 10/04/17 10:00 Respiratory Rate 18 10/04/17 10:00 Blood Pressure 150/56 10/04/17 10:00 O2 Sat by Pulse Oximetry (%) 97 10/04/17 09:00 Labs: CBC, BMP 10/03/17 07:35 10/03/17 08:00 Discharge Summary Reason For Visit: MASTOIDITIS,LUNG NODULE,OTITIS Condition: Guarded - Instructions Referrals: Sergio Kumar MD [Staff Physician] - Kayce Chen MD [Staff Physician] - Guillermo England MD [Staff Physician] - Disposition: HOME - Home Medications Comprehensive Discharge Medication List: Ambulatory Orders Amlodipine Besylate [Norvasc -] 5 mg PO DAILY 10/03/17 Amoxicillin/Potassium Clav [Augmentin 875-125 Tablet] 1 each PO BID #14 tablet 10/03/17 Ciprofloxacin [Cipro -] 500 mg PO BID #20 tablet 10/03/17 me home
== END 2017-10-04 11:39 | disposition home or self-care (01) | DRG 113 ==
LOC: JER 11:39 → JERBED 17:23 → J5S 21:00
PROVIDERS: ADMIT Internal Medicine; ATTEND Internal Medicine
DX: H70.91 Unspecified mastoiditis, right ear (principal); H66.91 Otitis media, unspecified, right ear; M48.04 Spinal stenosis, thoracic region; M79.7 Fibromyalgia; I10 Essential (primary) hypertension; J44.9 Chronic obstructive pulmonary disease, unspecified; F17.200 Nicotine dependence, unspecified, uncomplicated; E78.5 Hyperlipidemia, unspecified; F32.9 Major depressive disorder, single episode, unspecified; R91.1 Solitary pulmonary nodule
CPT/HCPCS: 36415; 70470-TC; 70480-TC; 71010-TC; 80053; 81003; 81015; 82550; 83605; 83735; 83880; 84100; 84484; 85025; 85610; 85651; 86140; 86850; 86900; 86901; 87040; 87086; 87186; 93005; 93010; 99284-25

== ENCOUNTER 2017-11-11 19:01 | Emergency (ER) | payer OTHER ==
--- NOTE | 2017-11-11 20:39 | PDOC ---
Rapid Medical Evaluation Time Seen by Provider: 11/11/17 20:33 Medical Evaluation: Allergies Allergy/AdvReac Type Severity Reaction Status Date / Time Sulfa (Sulfonamide Allergy Intermediate Hives Verified 10/02/17 11:43 Antibiotics) 11/11/17 20:37 I have performed a brief in-person evaluation of this patient. The patient presents with a chief complaint of spitting up blood since last night. States today blood streak saliva, last night large amounts of blood in saliva. Also reports tightness in chest with occasional shortness of breath and dry coughing. Denies fever or chills, + smoker Pertinent physical exam findings: Nad unlabored breathing, occasional cough in triage, lungs clear bilaterally heart s1s2 abdomen soft no pedal edema I have ordered the following: ekg chest xray The patient will proceed to the Ed for further evaluation.
[2017-11-11 20:41] VITALS: BP 146/79; PULSE 76; TEMP 98.1; BMI 32.8
== END 2017-11-12 01:29 | disposition left against medical advice (07) ==
LOC: JER 19:01
DX: Z53.21 Procedure and treatment not carried out due to patient leaving prior to being seen by health care provider (principal)
CPT/HCPCS: 99281-25